=== PATIENT | female | born 2005 | race Caucasian/White ===

== ENCOUNTER 2023-11-15 21:57 | Emergency (ER) | payer MEDICAID ==
[~2023-11-15] VITALS: Ht 160 cm; Wt 60.0 kg
[~2023-11-15 21:57] MED LIST: MELO-102 PO
[2023-11-15 22:19] VITALS: BP 115/68; PULSE 108; RESP 18; TEMP 99.3; O2SAT 99
[2023-11-15] MEDS ORDERED: ALBU8HFA INH (22:30)
== END 2023-11-15 22:34 | disposition home or self-care (01) ==
LOC: ER 22:02
DX: J98.8 Other specified respiratory disorders (principal); Z79.899 Other long term (current) drug therapy
CPT/HCPCS: 99283

== ENCOUNTER 2024-06-22 00:15 | Emergency (ER) | payer MEDICAID ==
[~2024-06-22] VITALS: Ht 162.6 cm; Wt 56.4 kg
[2024-06-22 01:06] LABS: BASOPHILS % (AUTO) 0.4 % (0-1); EOSINOPHILS % (AUTO) 0.5 % (0-6); HEMATOCRIT 36.2 % (35.0-45.0); HEMOGLOBIN 11.8 g/dl (12.0-16.0); LYMPHOCYTES # (AUTO) 2.5 X10'3 (1.1-4.8); LYMPHOCYTES % (AUTO) 42.1 % (21-51); MEAN CORPUSCULAR HEMOGLOBIN 27.3 PG (27.0-31.0); MEAN CORPUSCULAR HGB CONC 32.5 g/dL (33.0-36.5); MEAN CORPUSCULAR VOLUME 83.9 FL (78-98); MEAN PLATELET VOLUME 7.9 FL (7.4-10.4); MONOCYTES # (AUTO) 0.4 X10'3 (0-0.9); MONOCYTES % (AUTO) 6.8 % (2-12); NEUTROPHILS % (AUTO) 50.2 % (42-75); PLATELET COUNT 291 X10'3 (140-440); RED BLOOD COUNT 4.31 X10'6 (4.20-5.60); RED CELL DISTRIBUTION WIDTH 13.9 % (11.5-14.5)
[2024-06-22 01:10] LABS: URINE HCG NEGATIVE (NEG)
[2024-06-22 01:13] LABS: BILIRUBIN,URINE NEGATIVE (Neg); CLARITY,URINE CLEAR (Clear); COLOR,URINE YELLOW (Yellow); GLUCOSE, URINE NEGATIVE (Neg); KETONES,URINE TRACE mg/dl (Neg); LEUKOCYTE ESTERASE ,URINE NEGATIVE (Neg); NITRITES, URINE NEGATIVE (Neg); OCCULT BLOOD,URINE NEGATIVE (Neg); PROTEIN,URINE NEGATIVE (Neg); UROBILINOGEN,URINE 0.2 E.U/dL (0.2-1.0)
[2024-06-22 01:14] LABS: UA COLLECTION TYPE CLN CATCH MIDSTREAM
[2024-06-22 01:21] LABS: ALANINE AMINOTRANSFERASE 16 U/L (12-78); ALBUMIN 3.6 G/DL (3.4-5.0); ALKALINE PHOSPHATASE 57 IU/L (46-116); ANION GAP 9 (8-16); ASPARTATE AMINO TRANSFERASE 26 U/L (10-37); BILIRUBIN,TOTAL 0.4 MG/DL (0.1-1.0); BLOOD UREA NITROGEN 11 MG/DL (7-18); BUN/CREATININE RATIO 19.6 (10.0-20.0); CALCIUM 8.5 MG/DL (8.5-10.1); CHLORIDE 107 MMOL/L (99-107); CREATININE 0.56 MG/DL (0.40-0.90); GLUCOSE 89 MG/DL (70-104); LIPASE 46 U/L (16-77); POTASSIUM 3.7 MMOL/L (3.5-5.1); SODIUM 139 MMOL/L (135-145); TOTAL PROTEIN 7.2 G/DL (6.4-8.2); eCRCL 137 ML/MIN; eGFR > 90 ML/MIN
[2024-06-22 02:08] VITALS: PULSE 85
[2024-06-22] MEDS ORDERED: NAPR-56 PO (03:11)
[2024-06-22] MEDS: ketorolac trometh 30MG/ML vial 30 MG/ML VIAL IM ONE (03:20)
[2024-06-22 03:34] VITALS: BP 113/81; RESP 16; TEMP 98; O2SAT 100
== END 2024-06-22 03:36 | disposition home or self-care (01) ==
LOC: ER 01:52
DX: E28.2 Polycystic ovarian syndrome (principal); R10.84 Generalized abdominal pain; Z79.1 Long term (current) use of non-steroidal anti-inflammatories (NSAID); Z79.899 Other long term (current) drug therapy
CPT/HCPCS: 36415; 80053; 81003; 81025; 83690; 85025; 96372; 99284; J1885